=== PATIENT | male | born 1965 | race Caucasian/White ===

== ENCOUNTER 2023-01-06 08:07 | Emergency (ER) | payer SELFPAY ==
[~2023-01-06] VITALS: Ht 180.3 cm; Wt 86.2 kg
[2023-01-06 08:07] VITALS: BP_SYST 163
[2023-01-06] MEDS ORDERED: CLIN-142 PO (08:30)
[2023-01-06] MEDS ORDERED: cefTRIAXone 1 GM in LIDOCAINE 1%, 20 ML MDV 2.1 ML IM ONE (08:30)
[2023-01-06] MEDS ORDERED: NAPR-1172 PO (08:30)
[2023-01-06 08:57] VITALS: BP_SYST 163
== END 2023-01-06 08:37 | disposition home or self-care (01) ==
LOC: SED 08:07
DX: K02.9 Dental caries, unspecified (principal); I10 Essential (primary) hypertension; R22.0 Localized swelling, mass and lump, head; Z88.0 Allergy status to penicillin; Z79.899 Other long term (current) drug therapy
CPT/HCPCS: 99283; 96372; J0696; J2001